=== PATIENT | female | born 1980 | race Asian ===

== ENCOUNTER 2016-12-10 19:00 | Emergency (ER) | payer SELFPAY ==
[~2016-12-10] VITALS: Ht 149.9 cm; Wt 91.6 kg
[2016-12-10 19:45] VITALS: BP 102/56
--- NOTE | 2016-12-10 20:10 | NUR ---
CALLED FOR ROOM ASSIGNMENT; NO ANSWER
--- NOTE | 2016-12-10 20:30 | NUR ---
CALLED FOR ROOM ASSIGNMENT AGAIN; NOT IN LOBBY
--- NOTE | 2016-12-10 20:49 | NUR ---
CALLED AGAIN; NO ANSWER. INFORMED PT LEFT
== END 2016-12-10 20:50 | disposition left against medical advice (07) ==
LOC: ER 19:03
DX: Z53.21 Procedure and treatment not carried out due to patient leaving prior to being seen by health care provider (principal)
CPT/HCPCS: A4606; Z7610